=== PATIENT | male | born 1960 | race Caucasian/White ===

== ENCOUNTER 2023-02-23 11:30 | Day surgery (SDC) | payer BC ==
[2023-02-23] MEDS ORDERED: LACTATED RINGERS 1,000 ML IV ONE (11:33)
--- NOTE | 2023-02-23 12:42 | ANESTHESIA ---
Pre-Anesthesia VS, & Labs - Diagnosis screening - Procedure colonoscopy Vital Signs: Temp Pulse Resp BP Pulse Ox O2 Flow Rate 36.1 C L 73 16 144/80 H 100 02/23/23 11:38 02/23/23 11:38 02/23/23 11:38 02/23/23 11:38 02/23/23 11:38 Height: 5 ft 10 in Weight (kg): 73 kg Body Mass Index: 23.1 BMI Classification: Normal - NPO Other (prep last at 930) Home Medications and Allergies Home Medications: Ambulatory Orders Amlodipine Besylate [Norvasc] 5 mg PO DAILY 02/22/23 Losartan [Cozaar] 1 tab PO DAILY 02/22/23 Amlodipine Besylate [Norvasc] 5 mg PO DAILY 02/22/23 Losartan [Cozaar] 1 tab PO DAILY 02/22/23 Allergies/Adverse Reactions: Allergies Allergy/AdvReac Type Severity Reaction Status Date / Time No Known Drug Allergies Allergy Verified 02/22/23 13:24 Anes History & Medical History - Anesthetic History Anesthesia Complications: reports: No previous complications - Medical History Cardiovascular: reports: Hypertension Pulmonary: reports: None Gastrointestinal: reports: Colon polyps Urinary: reports: None Musculoskeletal: reports: None Endocrine/Autoimmune: reports: None Skin: reports: None Smoking Status: Former smoker Psychosocial: reports: Alcohol (occasional) - Surgical History General: reports: Colonoscopy Orthopedic: reports: Other Exam General: Alert, Oriented x3, Cooperative Dental: WNL Mouth Opening: Greater than 4 Fingerbreadths Neck Mobility: Normal Mallampati classification: II Respiratory: Lungs clear Cardiovascular: Regular rate Plan Anesthesia Type: Total IV Consent for Procedure(s) Verified and Reviewed: Yes Code Status: Attempt Resuscitation ASA classification: 2-Mild systemic disease Is this case an emergency?: No
[2023-02-23] MEDS ORDERED: PROPOFOL 500 MG/50 ML 500 MG/50 ML VIAL ONE (12:55)
[2023-02-23] MEDS ORDERED: LACTATED RINGERS 700 ML IV ONE (13:54)
--- NOTE | 2023-02-23 14:13 | ANESTHESIA POST OP EVALUATION ---
Anesthesia Post Eval - Post Anesthesia Eval Vitals: Last Vital Signs Temp 36.6 C 02/23/23 13:58 Pulse 88 02/23/23 13:58 Resp 16 02/23/23 13:58 BP 117/75 02/23/23 13:58 Pulse Ox 100 02/23/23 13:58 O2 Flow Rate CV Function Including HR & BP: Stable Pain Control: Satisfactory Nausea & Vomiting: Negative Mental Status: Baseline Respiratory Status: Airway Patent Hydration Status: Satisfactory Anesthesia Complications: None
[2023-02-23 14:42] VITALS: BP 122/73
== END 2023-02-23 11:31 | disposition home or self-care (01) ==
LOC: SDS 11:30
PROVIDERS: ATTEND Surgery
DX: Z12.11 Encounter for screening for malignant neoplasm of colon (principal); K57.30 Diverticulosis of large intestine without perforation or abscess without bleeding; K64.1 Second degree hemorrhoids; Z87.891 Personal history of nicotine dependence
CPT/HCPCS: 45378; J7120